=== PATIENT | female | born 1950 | race Caucasian/White ===

== ENCOUNTER → 2016-04-10 | Outpatient (CLI) | payer OTHER ==
[~2016-04-10] MED LIST: GADOBUTROL 10 ML VIAL IVP ONE
--- NOTE | 2016-04-11 11:46 | MR ---
MRI of Bilateral Breasts Clinical Indications: Asymmetric fullness and possible mass right breast 6 o'clock position. Technique: Precontrast sagittal fat-saturated T2-weighted and Vibrant images of both breasts were ob tained. Subsequently, during intravenous administration of 6 mL Gadavist, multiphasic sagittally acq uired Vibrant MR images through both breasts were obtained. Data was sent to the independent [employer] a workstation for additional analysis including 3D reconstruction, computer-aided detection (CAD), an d color-coded phase contrast enhancement evaluation. Findings: Right breast: There is diffusely abnormal parenchymal enhancement within the inferior aspect of the r ight breast. Enhancement kinetics are predominantly persistent without washout. More pronounced focal abnormal enhancement is identified within the deep aspect of the right breast at the 6 o'clock posit ion, which appears to correspond to the area of palpable concern, although there is diffuse abnormal non mass-like enhancement throughout the inferior aspect of the right breast. The upper aspect of the right breast enhances in benign fashion. Left breast: Benign fibrocystic-type enhancement pattern throughout the left breast parenchyma, witho ut evidence of masslike or ductal enhancement. Lymph nodes: No features of axillary or internal mammary lymphadenopathy identified bilaterally. Bilateral subpectoral breast augmentation prostheses are identified without features of intracapsular or extracapsular silicone or rupture Impression: 1. Diffuse abnormal non mass-like enhancement throughout the inferior aspect of the right breast, mos t pronounced at the 6 o'clock position. Given the palpable concern in this region, recommend tissue s ampling. Biopsy of the palpable lesion appears appropriate given the diffuse nature of enhancement. D ifferential considerations include fibrocystic enhancement versus lower grade in situ ductal malignan cy. 2. No evidence of abnormal enhancement of the left breast. No evidence of axillary lymphadenopathy. 3. Bilateral breast augmentation prostheses, which appear intact. BI-RADS 4.
== END ==
LOC: FIMAGING 12:29
PROVIDERS: ATTEND Specialist
DX: Z12.39 Encounter for other screening for malignant neoplasm of breast (principal); N63 Unspecified lump in breast
CPT/HCPCS: 0159T; 77059; A9585; C8908

== ENCOUNTER 2016-04-20 08:09 | Outpatient (CLI) | payer OTHER ==
[2016-04-20] MEDS ORDERED: GADOBUTROL 10 ML VIAL IVP ONE (08:38)
[2016-04-20] MEDS ORDERED: BUPIVACAINE 0.5% 30 ML SDV ONE (08:38)
[2016-04-20] MEDS ORDERED: LIDOCAINE 1% 5 ML SDV ONE (08:39)
[2016-04-20] MEDS ORDERED: NA BICARBONATE 50 MEQ/50 ML VIAL ONE (08:39)
[2016-04-20] MEDS ORDERED: FLUMAZENIL 0.5 MG/5 ML MDV IVP ONE (09:35)
[2016-04-20] MEDS ORDERED: fentaNYL 100 MCG/2 ML INJ ONE (09:35)
[2016-04-20] MEDS ORDERED: NALOXONE HCL 0.4 MG/ML INJ ONE (09:35)
[2016-04-20] MEDS ORDERED: MIDAZOLAM 2 MG/2 ML VIAL ONE (09:36)
[2016-04-20] MEDS ORDERED: ONDANSETRON 4 MG/2 ML VIAL ONE (10:57)
== END 2016-04-20 12:19 | disposition home or self-care (01) ==
LOC: FIMAGING 08:09
PROVIDERS: ATTEND Specialist
PROC: 0HBT3ZX Excision of Right Breast, Percutaneous Approach, Diagnostic (ICD-10-PCS; principal; 2016-04-20)
DX: D24.1 Benign neoplasm of right breast (principal); N60.91 Unspecified benign mammary dysplasia of right breast
CPT/HCPCS: A9585; J2250; J2310; J2405; J3010

== ENCOUNTER → 2016-07-13 | Outpatient (CLI) | payer OTHER ==
[2016-07-13 13:36] LABS: CREATININE 0.7 mg/dL (0.6-1.0); GLOMERULAR FILTRATION RATE > 60
== END ==
LOC: FIMAGING 12:43
DX: Z08 Encounter for follow-up examination after completed treatment for malignant neoplasm (principal); Z85.831 Personal history of malignant neoplasm of soft tissue
CPT/HCPCS: A9585

== ENCOUNTER → 2016-10-09 | Outpatient (CLI) | payer OTHER | LOC: FIMAGING 16:00 | PROVIDERS: ATTEND Obstetrics & Gynecology Gynecology | DX: Z12.31 Encounter for screening mammogram for malignant neoplasm of breast (principal) | CPT/HCPCS: G0202 ==

== ENCOUNTER → 2017-01-17 | Outpatient (CLI) | payer OTHER | LOC: FIMAGING 08:13 | PROVIDERS: ATTEND Orthopaedic Surgery | DX: Z85.831 Personal history of malignant neoplasm of soft tissue (principal) | CPT/HCPCS: A9585 ==

== ENCOUNTER → 2018-01-18 | Outpatient (CLI) | payer OTHER, MEDICARE | LOC: FIMAGING 06:35 | PROVIDERS: ATTEND Orthopaedic Surgery | DX: Z08 Encounter for follow-up examination after completed treatment for malignant neoplasm (principal); Z85.820 Personal history of malignant melanoma of skin | CPT/HCPCS: 73720; A9585; 82565-PO ==

== ENCOUNTER → 2018-07-03 | Outpatient (CLI) | payer OTHER, MEDICARE | LOC: FCPNEURO 20:00 | PROVIDERS: ATTEND Psychiatry & Neurology Sleep Medicine | DX: G47.33 Obstructive sleep apnea (adult) (pediatric) (principal); G47.31 Primary central sleep apnea; G47.61 Periodic limb movement disorder ==

== ENCOUNTER → 2018-08-27 | Outpatient (CLI) | payer OTHER, MEDICARE | LOC: FCPNEURO 22:48 ==